=== PATIENT | male | born 1975 | race Caucasian/White ===

== ENCOUNTER 2020-05-24 23:15 | Emergency (ER) | payer OTHER ==
[2020-05-24] MEDS ORDERED: TETRACAINE 0.5% OPHTH SOLN 2 ML BOTTLE OD ONE (23:39)
[2020-05-24] MEDS ORDERED: GENTAMICIN SULFATE 0.3% OPHTHALMIC (EYE DROPS) 5ML BOTTLE OD ONE (23:40)
[2020-05-24] MEDS ORDERED: FLUORESCEIN NA 1 EA STRIP OD ONE (23:40)
[2020-05-25] MEDS ORDERED: TETRACAINE 0.5% OPHTH SOLN 2 ML BOTTLE ONE (00:04)
[2020-05-25] MEDS ORDERED: GENTAMICIN SULFATE 0.3% OPHTHALMIC (EYE DROPS) 5ML BOTTLE ONE (00:04)
[2020-05-25] MEDS ORDERED: FLUORESCEIN NA 1 EA STRIP ONE (00:05)
[2020-05-25 00:10] VITALS: BP 158/95; PULSE 84; TEMP 98.1; BMI 48.8
== END 2020-05-25 00:13 | disposition home or self-care (01) ==
LOC: FER 23:15
DX: H10.31 Unspecified acute conjunctivitis, right eye (principal)
CPT/HCPCS: 99283-25